=== PATIENT | female | born 1995 | race Caucasian/White ===

== ENCOUNTER → 2021-06-12 16:31 | Outpatient (CLI) | payer OTHER, SELFPAY ==
[2021-06-12 17:27] LABS: Add Manual Diff / Slide Review NO; Basophils Absolute Auto 100 /uL (0-100); Basophils Percent Auto 0.5 % (0-2); Eosinophils Absolute Auto 300 /uL (0-450); Eosinophils Percent Auto 2.1 % (2-4); Hematocrit 37.9 % (36-46); Lymphocytes Absolute Auto 3300 /uL (1100-4500); Lymphocytes Percent Auto 26.5 % (25-40); Mean Corpuscular HGB Conc 34.3 % (30-36); Mean Corpuscular Hemoglobin 29.8 PG (26-34); Monocytes Absolute Auto 600 /uL (0-900); Monocytes Percent Auto 5.2 % (3-14); Neutrophils Absolute Auto 8200 /uL (1500-7000); Neutrophils Percent Auto 65.7 % (50-75); Platelet Count 274 X10^3/uL (150-400); Red Blood Cell Count 4.36 X10^6/uL (4.0-5.2); Red Cell Distribution Width 12.5 % (11.6-14.8); White Blood Cell Count 12.4 X10^3/uL (4.5-11.0)
[2021-06-12 17:40] LABS: Hemoglobin A1C% w Est Avg Glu 5.2 % (4.0-6.0)
[2021-06-13 04:42] LABS: RPR Screen Non Reactive (Non Reactive)
[2021-06-13 09:16] LABS: Varicella IgG Antibody <135 index (Immune >165)
[2021-06-14 17:26] LABS: Hepatitis B Surface Antigen NEGATIVE s/c (NEGATIVE); Rubella Antibody IgG 17.6 IU/mL (>15)
[2021-06-14 17:41] LABS: HIV 1 & 2 Ab/Ag 4th Gen Combo NEGATIVE (NEGATIVE); Hep C Virus Ab w/Reflex Quant NEGATIVE s/c (NEGATIVE)
[2021-06-14 20:36] LABS: AFP, Serum 40.5 ng/mL (.); Calc Gestational Age Ultrasound (.); Estriol, Free 0.67 ng/mL (.); Inhibin A, Dimeric 126.71 pg/mL (.); Inhibin A, MoM 0.93 (.); Maternal Ethnicity Caucasian (.); Maternal Weight 199 lbs (.); Number of Fetuses No (.); OSBR Risk 1 IN 3501 (.); Results Report (.); Test Results *Screen Negative* (.); hCG, MoM 1.06 (.); hCG, Serum 36341 mIU/mL (.)
== END ==
PROVIDERS: Referring Provider Obstetrics & Gynecology; Visit Provider Obstetrics & Gynecology
DX: Z34.82 Encounter for supervision of other normal pregnancy, second trimester; Z3A.16 16 weeks gestation of pregnancy
CPT/HCPCS: 36415; 80055; 82105; 82677; 83036; 84702; 86336; 86787; 86803; 86850; 86900; 86901; 87389

== ENCOUNTER → 2021-07-03 15:54 | Outpatient (CLI) | payer OTHER, SELFPAY ==
--- NOTE | 2021-07-03 15:58 | DIET.CONS ---
Dietary Consultation Note Assessment: 25y F [address] visit for help with healthy eating in as pt started this with BMI 38. Pt has 6yo (son) and 1yo (daughter) at home, went from 100# before first to 180#, saw RD after son's but didn't follow advice because RD recommended silken tofu, cottage cheese, etc. Pt feels biggest barrier to moderating weight gain in is the fact that she is a picky eater. Pt was vegetarian x8y until c daughter. Pt also reports being a stress eater or not eating for 18 hours at a time. Pt reports hx some disordered eating in high school. Pt has no constipation or morning sickness Tolerating AC vitamin intake daily + GERD in Usual Day: two meals and a snack in a day B: 2-4 eggo waffles with margarine, 16oz whole milk Sn: chips or spicy crackers, cheese D: pizza, pasta, burgers Pt drinks one full calorie CocaCola daily, down from 3-4 prior to this . Drinks 7-8 bottles water daily calcium- good (16oz whole milk, 1 serving cheese per day) iron- , (red meat 2-3x/week, hgb 13) iodine-uses iodized salt Vitamin D- checking supplement at home Picky Eating Hx: not big fruit or veggie person, no eggs, no fish, no beans, no oatmeal likes corn, potatoes,garlic for vegetables likes beef, chicken, sun butter, peanut butter, cashews, milk, cheese (mozz, cheddar) likes apples, oranges, grapes, strawberries, cherries, plums, most fruit but doesn't buy them because they rot in fridge Dislikes mushy, liquidly textures, doesn't like foods to touch or hot/cold mix Physical Activity: walks son to school and back five days per week, takes about an hour per day, no matter the weather. Ht: 60 Wt: 199# (+4# in 18w) BMI: 38 RD Impression: Pts biggest barrier to healthier eating is her picky eating and issues with food textures. Pt would do well to meet with OT/SLT feeding specialist at some point if she desires to work through these barriers as many foods she has not even been able to sample. Our goal today was to stretch pts comfort level to include as many healthy, supportive foods as possible that pt will realistically follow through with. Pts diet high in saturated fat, refined carbohydrates, low in dietary fiber and F/V. Goal is to reduce saturated fat and refined carbs, increase fiber, fruits, veggies, and ensure adequate protein. Nutrition Diagnosis: morbid obesity in r/t poor food acceptance aeb pt with limited intake F/V, pt with texture aversion, pt with temperature mixing of food aversion, BMI 38, pt eats a single breakfast daily and cycles between three dinners. Interventions: 1. Introduced pt to [facility] Plate. Compared pts usual intake to the plate, discussed and collaborated c pt on ways to better fit each meal to standard while understanding her severe food aversions. Encouraged pt to continue daily vitamin. Encouraged switch to 2% milk. Reinforced pts reduced consumption full sugar soda, challenged pt to cut down further to mini can to stay under 25g added sugar daily. Pt willing to try [place] Cakes high pro waffles in place of Eggo to increase protein, whole grains, and dietary fiber. Pt will look for chips/crackers with at least 3g dietary fiber per serving and switch to these. Pt will eat 1 serving fruit with lunch snack, purchasing two types of fruit at a time to reduce food waste. Pt will consider low carb protein drink or low sugar yogurt as snack or to boost protein in dinner. 2. Worked closely with pt to discuss ultra-processed dinner options such as [employer] pizza and [employer]urger [place]. Set goal of 25g protein at these meals. Pt willing to use ground chicken with HH and to use 1.5# instead of 1# and to go for 10 minute walk (dance with kids) when eating these options. [facility] pt reintroduce family taco night and use [place] low carb taco shells for herself. Pt not consuming more than 500kcals with these meals, so she is keeping her portion sizes small. 3. Reinforced importance of daily walking for steady slow weight gain, support of lean body mass, adding 10min after dinner. EER: 1800 kcals, 100g PRO, 25g dietary fiber, vitamin Monitoring/Evaluations: Pt feels these interventions are realistic and achievable, f/u prn Electronically Signed by: Lynn Sylvester 07/03/21 15:58 Clinical Dietitian [address] [address]
[2021-07-03 16:00] VITALS: BMI 38.0
== END ==
PROVIDERS: Referring Provider Obstetrics & Gynecology; Visit Provider Obstetrics & Gynecology
DX: O99.210 Obesity complicating pregnancy, unspecified trimester (principal); E66.01 Morbid (severe) obesity due to excess calories; Z68.38 Body mass index [BMI] 38.0-38.9, adult
CPT/HCPCS: 97802

== ENCOUNTER → 2021-07-09 15:43 | Outpatient (CLI) | payer OTHER, SELFPAY ==
[2021-07-09 18:49] LABS: Appearance Urine UA CLEAR; Bilirubin Urine UA NEGATIVE (NEGATIVE); Color Urine UA YELLOW; Glucose Urine UA NEGATIVE (Negative); Ketones Urine UA NEGATIVE (NEGATIVE); Leukocyte Esterase Urine UA NEGATIVE (NEGATIVE); Nitrite Urine UA NEGATIVE (Negative); Occult Blood Urine UA NEGATIVE (Negative); Protein Urine UA NEGATIVE (Negative); Specific Gravity Urine UA <=1.005 (1.000-1.035); Urobilinogen Urine UA 0.2 E.U./dL (0.2)
== END ==
PROVIDERS: Visit Provider Obstetrics & Gynecology
DX: Z34.80 Encounter for supervision of other normal pregnancy, unspecified trimester (principal)
CPT/HCPCS: 81003; 87086

== ENCOUNTER → 2021-07-25 14:41 | Outpatient (CLI) | payer OTHER, SELFPAY ==
--- NOTE | 2021-07-25 14:41 | DI.US.S_ITS ---
PROCEDURE: US OB >= 14 WEEKS FETUS INDICATIONS: ANATOMY SCAN OUTSIDE/PRIOR DATING DATA: Last menstrual period (LMP): 02/19/2021. LMP-based estimated date of delivery (BRISEYDA): 12/26/2021. First dating scan (date and location): 15 weeks 5 days. Estimated date of delivery (BRISEYDA) from first dating scan: 11/29/2021. The calculations are made using the ultrasound BRISEYDA of 11/29/2021. TECHNIQUE: Real-time scanning was performed of the fetus, with image documentation and biometric measurements. COMPARISON: [facility], , OB >= 14 WEEKS FETUS, 06/12/2021, 16:23. FINDINGS: General: A single living intrauterine gestation is present. Presentation: Variable-transverse oblique. Placenta: Placental position is posterior , without previa. Amniotic fluid index: 17.3 cm, normal range is 5-24 cm. heart rate: 157 beats per minute. Maternal cervical canal: 5.2 cm long. Normal lower limit is 2.5 cm. biometrics: Biparietal diameter: 5.4 cm. 22 weeks 3 days. Head circumference: 20.3 cm. 22 weeks 3 days. Abdominal circumference: 17.8 cm. 22 weeks 5 days. Femur length: 3.8 cm. 22 weeks 0 days. Clinically estimated gestational age: 21 weeks 6 days Composite gestational age from present scan: 22 weeks 3 days Estimated weight and percentile: 500 g. 72% percentile Anatomic survey: Neuro: Ventricles are non-dilated at less than 10 mm. Cisterna magna is normal at 3-11 mm. Cerebellum is suboptimally seen. Nuchal skin fold: Normal at less than 6 mm between 14-21 weeks gestational age, however is suboptimally seen. Face: Nose and lips, facial profile are normal. Spine: No evidence for spina bifida. Heart: 4-chambered heart is present, with normal ventricular outflow tracts. Diaphragm: Diaphragm is intact. Stomach: Left-sided stomach is present. Kidneys: No hydronephrosis. Normal is less than 5 mm in 2nd trimester, less than 7 mm in 3rd trimester. Cord: 3-vessel cord has orthotopic insertion. Bladder: Normal in size. Extremities: The right foot is not well seen, otherwise 4 extremities identified are normal. IMPRESSION: 1. Technically limited due to body habitus. 2. Single living intrauterine with a composite gestational age of 22 weeks 3 days from present scan. 3. Suboptimal visualization of the cerebellum, cisterna magna, nuchal fold, and feet due to body habitus and position. We strive to produce accurate, complete, and clear reports of imaging services. To assist us in improving patient care, this report was composed using standard report templates and voice recognition software. Therefore, it may contain abnormal punctuation, insertions and/or omissions. Occasional wrong-word or sound-alike substitutions may occur. Though we review the report and make efforts to correct it, we do recommend that the report be read carefully in proper context to recognize any text inaccuracies. Dictated by: Nate Caballero M.D. on 07/25/2021 at 16:44 Approved by: Nate Caballero M.D. on 07/25/2021 at 16:49
== END ==
PROVIDERS: Referring Provider Obstetrics & Gynecology; Visit Provider Obstetrics & Gynecology
DX: Z34.82 Encounter for supervision of other normal pregnancy, second trimester (principal); Z3A.22 22 weeks gestation of pregnancy
CPT/HCPCS: 76811

== ENCOUNTER → 2021-08-31 12:00 | Outpatient (CLI) | payer OTHER, SELFPAY ==
[2021-08-31 13:41] LABS: Hematocrit 33.9 % (36-46); Hemoglobin 11.5 g/dL (12.0-16.0)
[2021-08-31 14:19] LABS: Alanine Aminotransferase 8 IU/L (<35); Albumin 3.3 g/dL (3.5-5.0); Albumin Globulin Ratio 1.2 (1.0-2.8); Alkaline Phosphatase 79 U/L (38-126); Aspartate Aminotransferase 16 IU/L (14-36); Bilirubin Total 0.2 mg/dL (0.2-1.3); Blood Urea Nitrogen 5 mg/dL (7-17); Calcium 8.6 mg/dL (8.4-10.2); Carbon Dioxide 24 mmol/L (22-32); Chloride 103 mmol/L (98-107); Estimated Glomerular Filt Rate > 60.0 mL/min (>60); GTT (PREG) 1 Hour PP 50gm Dose 135 mg/dL (76-139); Globulin 2.8 g/dL (1.7-4.1); Glucose 135 mg/dL (70-100); HEMOLYSIS < 15 (0-50); Lactate Dehydrogenase 362 U/L (313-618); Potassium 3.4 mmol/L (3.4-5.1); Sodium 134 mmol/L (137-145); Total Protein 6.1 g/dL (6.3-8.2); Uric Acid 3.1 mg/dL (2.5-6.2)
[2021-08-31 16:12] LABS: Creatinine Urine Random 27.8 mg/dL; Protein (Total) Urine Random 14 mg/dL (0-12)
== END ==
PROVIDERS: Referring Provider Obstetrics & Gynecology; Visit Provider Obstetrics & Gynecology
DX: O26.899 Other specified pregnancy related conditions, unspecified trimester (principal); Z3A.26 26 weeks gestation of pregnancy; Z67.91 Unspecified blood type, Rh negative
CPT/HCPCS: 36415; 80053; 82570; 82950; 83615; 84156; 84550; 85014; 85018; 86850

== ENCOUNTER → 2021-09-05 14:17 | Outpatient (CLI) | payer OTHER, SELFPAY ==
[2021-09-05 17:02] LABS: Collection Time Urine 24 Hours; Protein (Total) Urine Random 16 mg/dL (0-12); Total Protein 24 Hour Urine 464 mg/day (42-225); Total Volume Urine 2900 mL
== END ==
PROVIDERS: Referring Provider Obstetrics & Gynecology; Visit Provider Obstetrics & Gynecology
DX: Z34.90 Encounter for supervision of normal pregnancy, unspecified, unspecified trimester (principal); R80.9 Proteinuria, unspecified
CPT/HCPCS: 84156

== ENCOUNTER → 2021-11-02 16:27 | Outpatient (CLI) | payer OTHER, SELFPAY ==
[2021-11-03 13:27] LABS: Strep Grp B PCR NEG for Grp B Strep
== END ==
PROVIDERS: PCP Obstetrics & Gynecology; Visit Provider Obstetrics & Gynecology
DX: Z34.83 Encounter for supervision of other normal pregnancy, third trimester (principal); Z3A.36 36 weeks gestation of pregnancy
CPT/HCPCS: 87653

== ENCOUNTER → 2021-11-09 16:55 | Outpatient (CLI) | payer OTHER, SELFPAY ==
[2021-11-09 19:10] LABS: Creatinine Urine Random 10.7 mg/dL; Protein (Total) Urine Random 14 mg/dL (0-12)
== END ==
PROVIDERS: PCP Obstetrics & Gynecology; Visit Provider Obstetrics & Gynecology
DX: Z34.90 Encounter for supervision of normal pregnancy, unspecified, unspecified trimester (principal)
CPT/HCPCS: 82570; 84156

== ENCOUNTER → 2021-11-10 11:38 | Outpatient (CLI) | payer OTHER, SELFPAY ==
[2021-11-10 13:18] LABS: Add Manual Diff / Slide Review NO; Basophils Absolute Auto 0 /uL (0-100); Basophils Percent Auto 0.4 % (0-2); Eosinophils Absolute Auto 100 /uL (0-450); Eosinophils Percent Auto 1.3 % (2-4); Hematocrit 30.4 % (36-46); Hemoglobin 10.2 g/dL (12.0-16.0); Lymphocytes Absolute Auto 2400 /uL (1100-4500); Lymphocytes Percent Auto 28.1 % (25-40); Mean Corpuscular HGB Conc 33.7 % (30-36); Mean Corpuscular Volume 77.1 fL (80-100); Monocytes Absolute Auto 400 /uL (0-900); Monocytes Percent Auto 4.1 % (3-14); Neutrophils Absolute Auto 5600 /uL (1500-7000); Neutrophils Percent Auto 66.1 % (50-75); Platelet Count 207 X10^3/uL (150-400); Red Blood Cell Count 3.94 X10^6/uL (4.0-5.2); White Blood Cell Count 8.5 X10^3/uL (4.5-11.0)
[2021-11-10 13:35] LABS: Alanine Aminotransferase 15 IU/L (<35); Albumin 3.2 g/dL (3.5-5.0); Alkaline Phosphatase 179 U/L (38-126); Aspartate Aminotransferase 23 IU/L (14-36); Bilirubin Total 0.3 mg/dL (0.2-1.3); Blood Urea Nitrogen 4 mg/dL (7-17); Calcium 8.2 mg/dL (8.4-10.2); Carbon Dioxide 21 mmol/L (22-32); Chloride 103 mmol/L (98-107); Estimated Glomerular Filt Rate > 60 mL/min (>60); Globulin 3.1 g/dL (1.7-4.1); Glucose 169 mg/dL (70-100); HEMOLYSIS < 15 (0-50); Lactate Dehydrogenase 402 U/L (313-618); Potassium 3.4 mmol/L (3.4-5.1); Sodium 132 mmol/L (137-145); Total Protein 6.3 g/dL (6.3-8.2); Uric Acid 3.2 mg/dL (2.5-6.2)
== END ==
PROVIDERS: Referring Provider Obstetrics & Gynecology; Visit Provider Obstetrics & Gynecology
DX: Z34.90 Encounter for supervision of normal pregnancy, unspecified, unspecified trimester (principal)
CPT/HCPCS: 36415; 80053; 83615; 84550; 85025

== ENCOUNTER → 2021-11-15 10:27 | Outpatient (CLI) | payer OTHER, SELFPAY ==
[2021-11-15 11:11] LABS: COVID19 -Nasal RAPID Negative (Negative)
== END ==
PROVIDERS: Visit Provider Obstetrics & Gynecology
DX: Z01.812 Encounter for preprocedural laboratory examination (principal); Z20.822 Contact with and (suspected) exposure to COVID-19
CPT/HCPCS: 87635

== ENCOUNTER 2021-11-15 11:24 | Inpatient (IN) | payer OTHER, SELFPAY ==
--- NOTE | 2021-11-15 | PATH_ITS ---
[facility] Accession Number: [id number] . 01 Material submitted: . fallopian tube - BILATERAL FALLOPIAN TUBES . 01 Clinical history: . INPT ENCOUNTER FOR STERILIZATION 39 WEEKS GESTATION OF HISTORY OF UTERINE SCAR FROM PREVIOUS SURGERY . 01 Diagnosis: Bilateral Fallopian Tubes, Bilateral Salpingectomy: Fallopian tubes x2, complete cross-sections. Negative for atypia or malignancy. V 11/19/2021 1204 Local . 01 Electronically signed: . Monalisa Haskins MD, Pathologist NPI- [id number] . 01 Gross description: . Received in formalin, labeled with the patient's name, designated 1. Bilateral fallopian tubes, are two undesignated fimbriated fallopian tubes. The first fallopian tube is 8.5 cm long by 0.9 cm in diameter with a smooth, purple, congested outer surface and attached abundant open fimbriae. The second fallopian tube is 8.0 cm long by 1.0 cm in diameter with a smooth, purple, congested outer surface and attached abundant open fimbriae. No discrete lesions are identified. [employer] Grade Mathematics Teacher sections are submitted as follows: A1: 8[employer] Grade Mathematics Teacher first fallopian tube with entire fimbriae. A2: 8Th Grade Mathematics Teacher second fallopian tube with entire fimbriae. (SARAH:[id number]) /R 11/17/2021 1549 Local . 01 Pathologist provided ICD-10: Z30.2, Z3A.39, Z98.891 . 01 CPT . 607630 Specimen Comment: A courtesy copy of this report has been sent to [phone] Performed at: 01 [facility] [address] [place] [address] [address], [place], [place] [id number] MD David Torres MD Phone: [phone]
--- NOTE | 2021-11-15 12:21 | PM.OBHP.IH.1 ---
OB HPI Date/Time Date of admission: 11/15/21 Date Patient Seen: 11/15/21 Time Patient Seen: 12:58 History of Present Condition Chief complaint: INPT BRISEYDA Calculator Estimated Delivery Date Method Current WG Current Estimate 11/26/21 LMP (Uncertain) 38w 3d Estimated Gestational Age (weeks): 38 : 4 Para: 2 Narrative: This patient is a 26yo @38+3 with a history of 2x prior CS and PIH in both prior pregnancies, presenting for repeat section and bilateral salpingectomy. Her blood pressures have been trending upward and in the past week she has had increasing SEBASTIAN and intermittent visual changes though neither has been persistant, and her CS was scheduled in the 38th week out of concern for incipient preeclampsia. On admission today, she notes that she has had increasingly frequent and painful contractions since last night, though no VB, LOF or decreased movement. She denies SEBASTIAN, visual changes, RUQ pain, or any other symptoms at this time. Her has been otherwise uncomplicated, and her only other contributory history is obesity. care: good care, initiated at week # (16), number of visits (9) and pounds weight gain (15) Dating criteria OB: LMP confirmed by 2nd trimester US Ultrasounds: normal mid trimester US Obstetrical complications: none Medical complications OB: none Indications Operative indications ( section): previous uterine surgery Preadmission Labs Last OB Lab Results: Blood Type O Negative 06/12/21 16:39 Antibody Screen Negative 08/31/21 13:20 Hematocrit 31.7 % (36-46) L 11/15/21 11:50 Hemoglobin 10.5 g/dL (12.0-16.0) L 11/15/21 11:50 Hepatitis B Surface Antigen Negative s/c (NEGATIVE) 06/12/21 16:39 Hepatitis C Antibody Negative s/c (NEGATIVE) 06/12/21 16:39 Rubella Antibody 17.6 IU/mL (>15) 06/12/21 16:39 Varicella-Zoster IgG Antibody <135 index (Immune >165) L 06/12/21 16:39 Glucose 1 Hour 135 mg/dL (76-139) 08/31/21 13:20 Group B Streptococcus (PCR) Neg for grp b strep 11/02/21 16:27 -: Chlamydia screen: negative, Gonorrhea screen: negative and Urine: negative Genetic Screens: Quad screen: Normal External Labs -: Urine: negative Prior (ies) Past Pregnancies Del. Date GA/Weeks Labor Lgth Wt Sex Route Outcome Anesthesia Place Delv Breastfeed Preg Comp Name 01/13/15 41 16 7 lb 2 oz Male live - full term epidural [facility] 3 days, latch prob. induced hyper- meconium post-dates induction Alfredo 03/15/20 39 0 7 lb 5.6 oz Female live - full term spinal [place] Danilo 1 month, low supply pre-eclampsia Dora Delivery Date: 01/13/15 Last Updated by: Johanny Araya R.N. Induction for non-reassuring NST. Pitocin & AROM, meconium, OP, to C/S. Had PPD & PPAnxiety x 6 mos: had social work & Rx, challenging, had SI early, used hotline. Delivery Date: 03/15/20 Last Updated by: Johanny Araya R.N. No PPD this time. Evaluation Evaluation Baseline heart rate: 135 Variability: Moderate (11-25) monitor accelerations: Present Monitor Decelerations: Absent Contraction Frequency (minutes): 2 Category of Tracing: Reactive Status: Category l PFSH Medical History Anxiety (~2009) Chronic eczema (~1993) Chronic migraine (~2008) Depression Eczema (~1993) Encounter for IUD removal (~2018) Gestational hypertension Headache (~2008) Irregular menstrual cycle (~2008) Obesity (BMI 30-39.9) Painful menstrual periods (~2008) depression associated with first Preeclampsia Rh negative state in antepartum period Surgical History Anesthesia delivery delivered (~2014) [place] teeth extracted (~2013) Family History Mother Hypertension Hyperlipidemia Father No problems noted. Grandmother Uterine cancer Grandfather Family history unknown Grandmother Type 2 diabetes mellitus Grandfather Type 2 diabetes mellitus Social History marital status: number of children: 2 lives independently: Yes caregiver/support person: No housing[place] pets and animals: No education level: college (some college.) occupational status: unemployed (SAHM.) current occupational exposures/hazards: No sd/amish: Scientologist special sd needs: No seatbelt use: always do you feel safe at home: Yes Smoking Status: Former smoker (5 cigs/day) Tobacco: How many years used: 16 quit status: has quit before (Quit with , mid-Mar. ) second hand exposure: No alcohol intake: former (Pre-: socially. ) substance use type: does not use well-balanced diet: about half the time daily servings fruits/ve-4 (1-2) caffeine: Yes (2 cans soda/day. ) Type(s) of exercise: walking (Walks son to school & back daily) frequency: 5-6 times per week duration: 30-45 minutes/day Meds Home Medications and Allergies Home Medications Medication Instructions Recorded Confirmed Type prenat.vits,sasha,gsu-ndoe-aupjm 1 tab PO DAILY 06/08/21 10/19/21 History Allergies Allergy/AdvReac Type Severity Reaction Status Date / Time No Known Drug Allergies Allergy Verified 10/19/21 16:26 Review of Systems Constitutional Constitutional: Reports system reviewed and no additional complaints, except as documented Cardiovascular Cardiovascular: Reports system reviewed and no additional complaints, except as documented Respiratory Respiratory: Reports system reviewed and no additional complaints, except as documented Gastrointestinal Gastrointestinal: Reports as per [facility] Genitourinary Genitourinary: Reports system reviewed and no additional complaints, except as documented Neurologic Neurologic: Reports as per [facility] OB Exam Resp Effort & Inspection: normal respiratory effort Auscultation: clear to auscultation bilaterally Cardio Rate: regular rate GI Palpation: Yes soft and No tender Objective Labs Result Diagrams: 11/15/21 11:50 11/15/21 12:21 Assessment and Plan Assessment and Plan Assessment and Plan narrative: This patient is admitted for repeat section and bilateral salpingectomy. We discussed the risks of repeat section including risk of damage to surrounding organs, hemorrhage, and infection. We compared these to the risk of uterine rupture with TOLAC. We discussed that bilateral salpingectomy is permanent contraception, and compared and contrasted salpingectomy with tubal ligation including theoretical risk of earlier menopause vs. decreased risk of ovarian cancer. The patient would like to proceed with repeat section and bilateral salpingectomy as planned. Informed consent was obtained and consent was signed. - CBC, PIH labs, T&S pending - prep for CS as per protocol
[2021-11-15 12:23] LABS: Add Manual Diff / Slide Review NO; Basophils Absolute Auto 100 /uL (0-100); Basophils Percent Auto 0.8 % (0-2); Eosinophils Absolute Auto 100 /uL (0-450); Hematocrit 31.7 % (36-46); Hemoglobin 10.5 g/dL (12.0-16.0); Lymphocytes Absolute Auto 2500 /uL (1100-4500); Lymphocytes Percent Auto 22.9 % (25-40); Mean Corpuscular HGB Conc 33.1 % (30-36); Mean Corpuscular Hemoglobin 25.4 PG (26-34); Mean Corpuscular Volume 76.9 fL (80-100); Monocytes Absolute Auto 800 /uL (0-900); Neutrophils Absolute Auto 7400 /uL (1500-7000); Neutrophils Percent Auto 68.3 % (50-75); Platelet Count 240 X10^3/uL (150-400); Red Blood Cell Count 4.12 X10^6/uL (4.0-5.2); Red Cell Distribution Width 15.1 % (11.6-14.8); White Blood Cell Count 10.8 X10^3/uL (4.5-11.0)
[2021-11-15 12:46] LABS: Alanine Aminotransferase 10 IU/L (<35); Albumin 3.3 g/dL (3.5-5.0); Albumin Globulin Ratio 1.1 (1.0-2.8); Alkaline Phosphatase 184 U/L (38-126); Aspartate Aminotransferase 20 IU/L (14-36); BUN Creatinine Ratio 10.7 (6-22); Bilirubin Total 0.5 mg/dL (0.2-1.3); Blood Urea Nitrogen 6 mg/dL (7-17); Calcium 8.2 mg/dL (8.4-10.2); Carbon Dioxide 21 mmol/L (22-32); Chloride 105 mmol/L (98-107); Estimated Glomerular Filt Rate > 60 mL/min (>60); Glucose 86 mg/dL (70-100); HEMOLYSIS < 15 (0-50); Lactate Dehydrogenase 400 U/L (313-618); Potassium 3.4 mmol/L (3.4-5.1); Sodium 134 mmol/L (137-145); Total Protein 6.3 g/dL (6.3-8.2); Uric Acid 3.7 mg/dL (2.5-6.2)
[2021-11-15 13:23] VITALS: BP 130/78
[2021-11-15] MEDS: CEFAZOLIN 2 GM/20 ML SYRINGE IV (15:35)
--- NOTE | 2021-11-15 16:03 | SUR.OPER ---
Supine on Padded OR bed, head on pillow, safety belt at thigh, arms secured on padded arm boards at <90 degrees abduction. Bump under right buttock. Legs uncrossed with pillow under knees, gel pad to heels, tape over blanket to lower legs.
[2021-11-15 16:51] VITALS: BP 110/60; PULSE 83; RESP 19; TEMP 36.5; O2SAT 99
[2021-11-15 16:56] VITALS: BP 109/69; PULSE 76; RESP 14; TEMP 36; O2SAT 98
--- NOTE | 2021-11-15 17:00 | SUR.OPER ---
Viable baby boy was born at 16:04 on 11/15/21. 2 tubes of blood and placenta labelled and sent with the L&D nurse.
[2021-11-15 17:01] VITALS: BP 120/70; PULSE 86; RESP 22; TEMP 36.4; O2SAT 97
[2021-11-15 17:06] VITALS: BP 118/70; PULSE 85; RESP 19; TEMP 36.4; O2SAT 97
--- NOTE | 2021-11-15 17:38 | PM.OBCS.1 ---
Operative Date/Time/Diagnoses Date of procedure: 11/15/21 Time of procedure: 15:30 Pre-op diagnosis: prior CS, desire for permanent sterilization Post-op diagnosis: same Procedure & Clinicians Procedure: repeat section Same procedure as scheduled: Yes Indications: Term with signs of PIH, 2x prior CS, desire for permanent sterilization Surgeon: Alexandra Power Pharmacognosy Teacher: Jeramy Hitchcock Reason for Pharmacognosy Teacher: Assistance with retraction Anesthesia Type: Spinal Operative Notes Findings: Normal tubes and ovaries, uterus with adenomyosis based on shape and texture Closure Type: primary Specimen(s): cord blood Intraoperative meds administered: Pitocin Applied: Catheter Estimated Blood Loss (mL): 500 Blood products transfused: none Procedure in detail: EBL: 500ccs Fluids: 1800ccs LR UOP: 100ccs clear yellow urine Findings: male in cephalic presentation, Apgars 9+9, weight 3316g, normal uterus, tubes, ovaries. Procedures: The patient was taken to the operating room where spinal anesthesia was placed and found to be adequate. She was prepped and draped in the normal sterile fashion in the dorsal supine position with a leftward tilt. A Pfannenstiel skin incision was made with a scalpel and carried through to the underlying layer of fascia. The fascia was incised in the midline and the incision extended laterally with Orosco scissors. The superior aspect of this incision was grasped with Melva clamps, elevated, and the underlying rectus muscles dissected off bluntly and with the curved Orosco scissors. Attention was then turned to the inferior aspect of this incision which, in a similar fashion, was grasped, tented up with the Melva clamps, and the rectus muscles dissected off bluntly and with the curved Orosco scissors. The rectus muscles were then in the midline, and the peritoneum identified, tented up, and entered sharply with Metzenbaum scissors. The peritoneal incision was extended superiorly and inferiorly with good visualization of the bladder. The bladder blade was inserted and the vesicouterine peritoneum identified, grasped with pickups, and entered sharply with the Metzenbaum scissors. This incision was extended laterally, and the bladder flap created digitally. A moderate amount of scar tissue was noted throughout, and the lower uterine segment was notably thin. The bladder blade was then reinserted and the lower uterine segment incised in transverse fashion with the scalpel. The uterine incision was bluntly extended laterally. The bladder blade was removed, and the 's head delivered atraumatically with assistance of a vacuum. After 45 seconds of delayed cord clamping, the cord was clamped and cut. The nose and mouth were suctioned as needed with a bulb syringe, and the was handed off to awaiting pediatricians. The placenta was then removed spontaneously, and the uterus was exteriorized and cleared of all clots and debris. The uterine incision was repaired with 1-0 chromic in a running, locked fashion and excellent hemostasis was achieved. A careful inspection of the lower uterine segment and bladder flap showed that a second layer was not necessary to achieve hemostasis, and closure of these layers was not feasible given the status of the tissue. Attention was then turned to the fallopian tubes. The right fallopian tube was elevated with the ivette clamp and the mesosalpinx sequentially clamped, coagulated and cut with the Ligasure device. The same process was performed on the left. The uterus was returned to the abdomen, and the gutters were cleared of all clots and debris. The peritoneum was closed with 3-0 Vicryl, and the fascia reapproximated with 0 Vicryl in a running fashion. The subcutaneous layer was placed with 3 0 Vicryl in an interrupted fashion and the skin was closed with 4-0 biosyn in a running fashion. The patient tolerated the procedure well, sponge lap and needle counts were correct x2. 2 g of Ancef were given at commencement of the case. The patient was taken to the recovery room in stable condition. Complications: none Baby Osmar: Infant Gender: Male Presentation: vertex Position: Left Occiput Anterior Placental Delivery Description: Manual Removal Cord Vessel Description: 3 Vessels score (1 min): 9 score (5 min): 9 weight: 7 lb 4.968 oz Post-operative Condition: stable Disposition: PACU Aftercare: routine postop
[2021-11-15] MEDS: ONDANSETRON 4 MG/2 ML INJ IV (18:38)
[2021-11-15] MEDS: METOCLOPRAMIDE 10 MG/2 ML INJ IV (19:01)
[2021-11-15] MEDS: KETOROLAC 30 MG/ML VIAL IV (22:35)
[2021-11-16] MEDS: NALOXONE 0.4 MG/ML VIAL IV (00:53)
[2021-11-16] MEDS: KETOROLAC 30 MG/ML VIAL IV ×2 (04:57→10:39)
[2021-11-16] MEDS: OXYCODONE/ACETAMINOPHEN 5/325 TABLET 1 TAB PO (05:36)
[2021-11-16 06:24] LABS: Add Manual Diff / Slide Review NO; Basophils Absolute Auto 100 /uL (0-100); Basophils Percent Auto 0.6 % (0-2); Eosinophils Absolute Auto 100 /uL (0-450); Eosinophils Percent Auto 0.8 % (2-4); Hematocrit 26.5 % (36-46); Hemoglobin 8.8 g/dL (12.0-16.0); Lymphocytes Absolute Auto 2200 /uL (1100-4500); Lymphocytes Percent Auto 20.6 % (25-40); Mean Corpuscular HGB Conc 33.3 % (30-36); Mean Corpuscular Hemoglobin 25.3 PG (26-34); Mean Corpuscular Volume 76.1 fL (80-100); Monocytes Absolute Auto 900 /uL (0-900); Monocytes Percent Auto 8.5 % (3-14); Neutrophils Absolute Auto 7600 /uL (1500-7000); Neutrophils Percent Auto 69.5 % (50-75); Platelet Count 185 X10^3/uL (150-400); Red Blood Cell Count 3.48 X10^6/uL (4.0-5.2); Red Cell Distribution Width 15.3 % (11.6-14.8); White Blood Cell Count 10.9 X10^3/uL (4.5-11.0)
[2021-11-16] MEDS: DOCUSATE 100 MG CAPSULE 200 MG PO (09:12)
[2021-11-16] MEDS: ACETAMINOPHEN 325 MG TABLET 650 MG PO ×2 (10:39→18:47)
--- NOTE | 2021-11-16 14:17 | PM.OBPN.1 ---
Subjective - OB Subjective Patient comments: no complaints and pain well controlled [place] baby status: doing well [place] feeding status: exclusively breast feeding Narrative: This patient is POD#1 s/p uncomplicated repeat CS and bilateral salpingectomy. Ambulating, voiding, mild lochia, passing flatus, tolerating PO, no PIH symptoms. Baby doing well. Date Patient Seen: 11/16/21 Time Patient Seen: 08:45 Interval history: This patient is POD#1 s/p uncomplicated repeat CS and bilateral salpingectomy. Ambulating, voiding, mild lochia, passing flatus, tolerating PO, no PIH symptoms. Baby doing well. Exam Vital Signs (past 8 hours): 103/68, HR 78 Oxygen Delivery Method Room Air Oxygen Flow Rate 0 Narrative Exam Narrative: Patient resting in bed with Const General: cooperative, healthy appearing, comfortable and well groomed Resp Effort & Inspection: normal respiratory effort Auscultation: clear to auscultation bilaterally Cardio Rate: regular rate Rhythm: regular rhythm GI Inspection: incision (c/d/i, covered by aquacell) Palpation: soft and No tender Skin General: no rashes or lesions noted Extrem General: normal to inspection Objective Labs Result Diagrams: 11/16/21 05:55 11/15/21 12:21 Labs: Laboratory Results - last 24 hr 11/15/21 11/16/21 11:50 05:55 WBC 10.9 RBC 3.48 L Hgb 8.8 L Hct 26.5 L MCV 76.1 L MCH 25.3 L MCHC 33.3 RDW 15.3 H Plt Count 185 Neut % (Auto) 69.5 Lymph % (Auto) 20.6 L [place] % (Auto) 8.5 Eos % (Auto) 0.8 L Baso % (Auto) 0.6 Neut # (Auto) 7600 H Lymph # (Auto) 2200 [place] # (Auto) 900 Eos # (Auto) 100 Baso # (Auto) 100 Antibody Identification Anti-D Assessment & Plan Plan day: 1 plan OB: routine postop care Comments: Patient meeting postop goals appropriately, continue routine postop care. Time Spent With Patient Time: Total time spent is greater than 50% in coordination of care (as documented) at patient's floor/unit and/or counseling patient: Time with patient: 15-24 minutes
[2021-11-16] MEDS: IBUPROFEN 600 MG TABLET PO (18:48)
[2021-11-17] MEDS: IBUPROFEN 600 MG TABLET PO ×3 (00:22→14:18)
[2021-11-17] MEDS: ACETAMINOPHEN 325 MG TABLET 650 MG PO ×3 (00:23→14:18)
--- NOTE | 2021-11-17 10:21 | PM.OBDS.1 ---
Discharge Providers Provider Date of admission: 11/15/21 11:24 Discharge Date: 11/17/21 Consults: 11/15/21 17:51 Consult to Outside [employer] Routine Comment: Discharge provider: Alexandra Power MD Summary Hospital Course Date Patient Seen: 11/17/21 Time Patient Seen: 10:23 Diagnoses: third repeat section and bilateral salpingectomy Hospital Course: This patient was admitted for scheduled third repeat section and bilateral salpingectomy. The patient's surgery was uncomplicated, and her recovery was similarly uncomplicated. She was discharged on POD#2 meeting all postoperative goals. Peripartum Data Infant Delivery Method: Section complications: none [place]: Gender: Male Disposition of : home Status at Discharge Cognitive/behavioral status at discharge: oriented Functional status at discharge: independent ambulation Overall status at discharge: patient is progressing back to baseline Time Spent with Patient Time attestation: Total time spent providing and/or coordinating discharge services: Time spent: Less than 30 minutes Objective Labs Result Diagrams: 11/16/21 05:55 11/15/21 12:21 Exam Vital Signs (past 8 hours): 128/76, HR 85, afebrile Oxygen Delivery Method Room Air Oxygen Flow Rate 0 Narrative Exam Narrative: Patient resting in bed. Reports mild lochia, ambulating, voiding, passing flatus, no PIH symptoms, tolerating PO. Const General: cooperative, healthy appearing, comfortable and well groomed Resp Effort & Inspection: normal respiratory effort Auscultation: clear to auscultation bilaterally Cardio Rate: regular rate Rhythm: regular rhythm GI Inspection: incision (c/d/i, covered by aquacell) Palpation: soft and No tender Other: Fundus firm, well below u Extrem General: normal to inspection Discharge Plan Discharge Plan Patient Disposition: Home Discharge orders & Medications Prescriptions: New ferrous sulfate 325 mg (65 mg iron) tablet 325 mg PO DAILY Qty: 30 2RF Rx Instructions: Take once daily in period. oxycodone 5 mg tablet 5 mg PO Q6H PRN (Reason: pain) Qty: 20 0RF Rx Instructions: Take as often as every 6 hours for pain. Continued prenat.vits,sasha,[id number] Tablet 1 tab PO DAILY Follow up/Referrals: Alexandra Power MD [Physician] - 1 Week (incision check) Chacha,Noelle M, PA-C [[employer]] - (Appointment with CAROL Schroeder on at 1:00pm for aqacell removal.) Diet/Activity/Treatments Diet: Regular Activity: Nothing in the vagina for 6 weeks. Avoid lifting more than 10 pounds for 6 weeks. If you have increasing pain, fevers, chills, nausea, headaches, bleeding, or any other symptoms or concerns, call our office or come to the emergency room. Skin/Wound/Dressing Care Report to your healthcare provider any signs of infection, such as:: chills, fever, night sweats, increased pain, unusual drainage and unusual redness Dressing: To be removed at 1 week postop. OK to shower, just pat area dry. Visit Report/Discharge Packet Instructions: DI for
== END 2021-11-17 15:15 | disposition home or self-care (01) | DRG 784 ==
PROVIDERS: Admitting Provider Obstetrics & Gynecology; Referring Provider Obstetrics & Gynecology; Visit Provider Obstetrics & Gynecology
PROC: 10D00Z1 Extraction of Products of Conception, Low, Open Approach (ICD-10-PCS; CPT 59514; principal; 2021-11-15 13:30)
DX: O34.211 Maternal care for low transverse scar from previous cesarean delivery (principal); D62 Acute posthemorrhagic anemia; O14.94 Unspecified pre-eclampsia, complicating childbirth; Z30.2 Encounter for sterilization; N80.0 Endometriosis of uterus; Z3A.38 38 weeks gestation of pregnancy; Z37.0 Single live birth; O99.214 Obesity complicating childbirth; Z20.822 Contact with and (suspected) exposure to COVID-19; O99.02 Anemia complicating childbirth
CPT/HCPCS: 36415; 58611; 59050; 59510; 59514; 80053; 83615; 84550; 85025; 86850; 86870; 86900; 86901; 87635; J0690; J1885; J2274; J2310; J2405; J2590; J2765